=== PATIENT | male | born 1965 | race Caucasian/White ===

== ENCOUNTER 2017-09-02 14:34 | Emergency (ER) | payer OTHER ==
--- NOTE | 2017-09-02 14:37 | ED Physician Documentation ---
General Adult - HISTORIAN Historian: patient - HPI Stated Complaint: abdominal pain Chief Complaint: Abdominal Pain Onset: hours (6) Timing: still present, other (after picking up something heavy he says its his hernia acting up - he has not been told by a physician he has a hernia ) Severity: moderate Modifying Factors: when he sits or lays he feels increased pain Context: Sharp Location: Left abdomen and at times right Further Comments: yes (He did take oxycontin 10 mg before arrival) Last known Well Date: 09/02/17 Last Known Well Time: 08:00 Last known Well Code/Unknown Code: Unknown - ROS CONST: no problems EYES/ENT: none CVS/RESP: none GI/: abdominal pain. denies: problems urinating, vomiting, nausea, diarrhea NEURO/PSYCH: denies: headache, fainting, dizziness - PAST HX Past History: other (he cannot recall ) Other History: other (he cannot recall ) Surgeries/Procedures: other ("lots" ) Immunizations: referred to PCP Allergies/Adverse Reactions: Allergies Allergy/AdvReac Type Severity Reaction Status Date / Time codeine Allergy urination Unverified 04/16/15 14:08 pain, nausea/ vomiting - SOCIAL HX Smoking History: cigarettes Alcohol Use: none Drug Use: none - FAMILY HX Family History: No - REVIEWED ASSESSMENTS Nursing Assessment Reviewed: Yes Vitals Reviewed: Yes Progress - Progress Progress: 15:52: Explained DX to pt and treatment plan He is wanting to go smoke - we discussed this is not possible He states his pain is better He is sitting calmly on the side of the bed ED Results Lab/Radiology - Radiology Radiology Impressions: CT abdomen and pelvis without IV contrast Clinical history: Left-sided abdominal pain after heavy lifting Radiation dose DLP 505 Lobulated liver without focal hepatic pathology. Normal size spleen. No traumatic injury to the abdomen. Normal pancreas and adrenal glands. Extensive calcification in both kidneys left more than right with left renal stone at the left ureteropelvic junction measures 6 x 4 mm with moderate left hydronephrosis. Extensive calcification of the abdominal aorta without aneurysm. No bowel obstruction. No free fluid or free air in the abdomen or pelvis. 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 No acute fractures in the pelvic bone. Normal right hip. Normal mentum. Significant lumbar spondylosis without visible lumbar spine fracture. Impression: Bilateral nephrolithiasis left more than right with 6 x 4 mm calculus at the left ureteropelvic junction with moderate left hydronephrosis . Lumbar spondylosis without visible fractures in the spine or pelvis No traumatic injury to the liver or spleen Vascular calcifications. Electronically signed on Sep 02, 2017 3:34:39 PM CDT by: Duke Tarango General Adult Physical Exam - PHYSICAL EXAM GENERAL APPEARANCE: moderate distress (he is kneeling on the ground) EENT: eye inspection normal NECK: normal inspection RESPIRATORY: no resp distress, chest non-tender, breath sounds normal CVS: reg rate & rhythm, heart sounds normal, no murmur ABDOMEN: normal bowel sounds, no distension, guarding, other (pain with palpation generalized in abdomen - no hernias felt in abdomen or groin ). No: rebound BACK: normal inspection SKIN: warm/dry, normal color EXTREMITIES: non-tender, normal range of motion NEURO: oriented X3, CN's nml as tested, motor nml Discharge Clincal Impression: Nephrolithiasis Referrals: Primary Doctor,No [Primary Care Provider] - 2 Days Additional Instructions: Call Monday for set up with urology Condition: Stable Disposition: 01 HOME, SELF-CARE Decision to Admit: NO Date of Decison to Admit: 09/02/17 Decision Time: 16:34
[2017-09-02] MEDS ORDERED: KETOROLAC TROMETHAMINE 30 MG/1ML VIAL IVP ONE (14:51)
[2017-09-02 15:26] LABS: BASOPHILS % 0.7 (0.0-1.5); MEAN CORPUSCULAR HEMOGLOBIN 32.3 pg (28.0-34.0); MEAN CORPUSCULAR VOLUME 90.4 fl (80.0-100.0); MONOCYTES % 3.8 % (0.0-11.0); NEUTROPHILS # 11.2 # k/uL (1.4-7.7)
[2017-09-02 15:36] LABS: eGFR (African) > 60; eGFR (Non-African) > 60
[2017-09-02] MEDS ORDERED: TAMSULOSIN HCL 0.4 MG CAP.ER.24H PO ONE (15:36)
[2017-09-02] MEDS ORDERED: 0.9 % SODIUM CHLORIDE 1,000 ML IV ONE (15:36)
--- NOTE | 2017-09-02 15:43 | Diagnostic Imaging Report ---
[facility] [id number] [facility] [address] [place], [place]. [address] Report Submission Date: Sep 02, 2017 3:34:39 PM CDT Patient Study Name: MIO STEWART Date: Sep 02, 2017 3:05:22 PM CDT Modality Type: CT\SR Gender: M Description: CT ABD & PELVIS W/O CO : 61 Institution: [facility] Physician: CHARLES WALKER - YAIR CT abdomen and pelvis without IV contrast Clinical history: Left-sided abdominal pain after heavy lifting Radiation dose DLP 505 Lobulated liver without focal hepatic pathology. Normal size spleen. No traumatic injury to the abdomen. Normal pancreas and adrenal glands. Extensive calcification in both kidneys left more than right with left renal stone at the left ureteropelvic junction measures 6 x 4 mm with moderate left hydronephrosis. Extensive calcification of the abdominal aorta without aneurysm. No bowel obstruction. No free fluid or free air in the abdomen or pelvis. 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 No acute fractures in the pelvic bone. Normal right hip. Normal mentum. Significant lumbar spondylosis without visible lumbar spine fracture. Impression: Bilateral nephrolithiasis left more than right with 6 x 4 mm calculus at the left ureteropelvic junction with moderate left hydronephrosis . Lumbar spondylosis without visible fractures in the spine or pelvis No traumatic injury to the liver or spleen Vascular calcifications. Electronically signed on Sep 02, 2017 3:34:39 PM CDT by: Duke GRIMES
[2017-09-02 16:49] VITALS: BP 149/95
== END 2017-09-02 16:49 | disposition home or self-care (01) ==
LOC: ED 14:34
DX: N20.0 Calculus of kidney (principal)
CPT/HCPCS: 74176; 80053; 83690; 85025; J1885; J7030; 96361; 96374; 99283; S1016